=== PATIENT | female | born 1985 | race Caucasian/White ===

== ENCOUNTER 2018-01-03 11:39 | Emergency (ER) | payer OTHER ==
[2018-01-03] MEDS ORDERED: PROMETHAZINE 25 MG/ML VIAL ONE (13:01)
[2018-01-03] MEDS ORDERED: NA CHLORIDE 0.9% 1,000 ML ONE ×2 (13:01→14:52)
[2018-01-03 13:03] LABS: Absolute Lymphocytes (CBC) 1.6 K/uL (0.7-4.9); Absolute Monocytes 0.5 K/uL (0.1-1.3); Absolute Neutrophil 6.9 K/uL (1.8-8.0); Basophils % 0.4 % (0-1.3); Eosinophils % 0.4 % (0-4.4); Hematocrit 41.5 % (36.0-45.0); Lymphocytes % 17.2 % (15.3-44.8); MCH 32.4 pg (27.0-35.0); MCV 92.8 fL (80-100); MPV 8.3 fL (7.6-11.3); Monocytes % 5.2 % (3.3-12.3); RBC Red Blood Cell Count 4.47 M/uL (3.86-4.86)
[2018-01-03 13:14] LABS: Potassium 3.7 mmol/L (3.5-5.1)
[2018-01-03 16:17] LABS: Urine Blood NEGATIVE (NEG); Urine Glucose NEGATIVE (NEG); Urine Protein TRACE (NEG)
[2018-01-03 16:32] LABS: Urine Bacteria <20 /HPF (<20); Urine Culture Reflex Order NOT NEEDED; Urine Mucus 2+ /HPF (NONE SEEN); Urine RBC <5 /HPF (NONE SEEN)
--- NOTE | 2018-01-03 16:42 | ER ---
Nurse's Notes [facility] Name: Cassidy Salcedo Age: 32 yrs Sex: Female : 1985 Arrival Date: 01/03/2018 Time: 11:41 Bed 8 Private MD: Ave Chapa Diagnosis: Vomiting of , unspecified Presentation: 01/03 12:04 Presenting complaint: Patient states: Shes 10 weeks and she has been vomiting, aj1 unable to keep anything down for the past 3 days. Reports weakness and dizziness. She has been taking Zofran and diclegis, but she has been unable to keep them down. Transition of care: patient was not received from another setting of care. Onset of symptoms was December 31, 2017. Risk Assessment: Do you want to hurt yourself or someone else? Patient reports no desire to harm self or others. Initial Sepsis Screen: Does the patient meet any 2 criteria? No. Patient's initial sepsis screen is negative. Does the patient have a suspected source of infection? No. Patient's initial sepsis screen is negative. Care prior to arrival: None. 12:04 Method Of Arrival: Wheelchair aj1 12:04 Acuity: MARI 3 aj1 Triage Assessment: 12:09 General: Appears in no apparent distress. comfortable, Behavior is calm, cooperative, aj1 appropriate for age. Pain: Denies pain. Neuro: Level of Consciousness is awake, alert, obeys commands. Cardiovascular: Patient's skin is warm and dry. Respiratory: Airway is patent Respiratory effort is even, unlabored, Respiratory pattern is regular, symmetrical. GI: Reports vomiting. : Denies vaginal bleeding. 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 - Social history:: Smoking status: Patient/guardian denies using tobacco. - Ebola Screening: : Patient denies travel to an Ebola-affected area in the 21 days before illness onset. Screenin:45 Abuse screen: Denies threats or abuse. Denies injuries from another. Nutritional sv screening: No deficits noted. Tuberculosis screening: No symptoms or risk factors identified. Fall Risk None identified. Assessment: 12:45 General: Appears uncomfortable, well developed, Behavior is calm, cooperative, sv appropriate for age. Pain: Denies pain. Neuro: Level of Consciousness is awake, alert, obeys commands, Oriented to person, place, time, situation, Moves all extremities. Full function Gait is steady. Cardiovascular: Patient's skin is warm and dry. Respiratory: Respiratory effort is even, unlabored, Respiratory pattern is regular, symmetrical. GI: Abdomen is flat, Reports nausea, vomiting, dry heaving. Derm: Skin is pale. 13:32 Reassessment: Patient appears in no apparent distress at this time. Patient and/or sv family updated on plan of care and expected duration. Pain level reassessed. Patient is alert, oriented x 3, equal unlabored respirations, skin warm/dry/pink. Patient states feeling better. Patient states symptoms have improved. 14:54 Reassessment: Patient appears in no apparent distress at this time. Patient and/or sv family updated on plan of care and expected duration. Pain level reassessed. Patient is alert, oriented x 3, equal unlabored respirations, skin warm/dry/pink. Patient states feeling better. Patient states symptoms have improved. 15:40 Reassessment: Patient appears in no apparent distress at this time. Patient and/or sv family updated on plan of care and expected duration. Pain level reassessed. Patient is alert, oriented x 3, equal unlabored respirations, skin warm/dry/pink. Pt ambulatory to the bathroom with no difficulty noted. 16:59 Reassessment: Patient appears in no apparent distress at this time. Patient and/or sv family updated on plan of care and expected duration. Pain level reassessed. Patient is alert, oriented x 3, equal unlabored respirations, skin warm/dry/pink. Patient states feeling better. Patient states symptoms have improved. Vital Signs: 12:09 BP 127 / 88; Pulse 88; Resp 18; Temp 98.4(O); Pulse Ox 99% on R/A; Weight 86.18 kg (R); aj1 Height 5 ft. 6 in. (167.64 cm) (R); Pain 0/10; 13:31 BP 114 / 74; Pulse 78; Resp 18; Temp 98.8(O); Pulse Ox 100% on R/A; sv 14:30 BP 109 / 66; Pulse 61; Resp 16; Pulse Ox 100% on R/A; dh3 15:43 BP 105 / 70; Pulse 61; Resp 18; Pulse Ox 99% ; sv 17:00 BP 108 / 66; Pulse 62; Resp 16; Pulse Ox 99% ; sv 12:09 Body Mass Index 30.67 (86.18 kg, 167.64 cm) aj1 ED Course: 11:41 Patient arrived in ED. sb2 11:41 Ave Chapa MD is Private Physician. sb2 12:06 Triage completed. aj1 12:11 Arm band placed on Patient placed in waiting room. aj1 12:39 James Stone NP is PHCP. pm1 12:39 Marcel Dove MD is Attending Physician. pm1 12:39 Lucia Castano, JESSICA is Primary Nurse. sv 12:45 Patient has correct armband on for positive identification. Placed in gown. Bed in low sv position. Side rails up X 1. Adult w/ patient. Door closed. Warm blanket given. Head of bed elevated. 12:45 Initial lab(s) drawn, by me, sent to lab. Inserted saline lock: 20 gauge in right sv antecubital area, using aseptic technique. Blood collected. Flushed right antecubital with 5 ml normal saline. 13:23 IV is patent, is intact, with fluids infusing freely. sv 17:00 No provider procedures requiring assistance completed. IV discontinued, intact, sv bleeding controlled, No redness/swelling at site. Pressure dressing applied. Administered Medications: 13:00 Drug: Phenergan 12.5 mg Route: IVP; Site: right antecubital; sv 13:30 Follow up: Response: No adverse reaction; Marked relief of symptoms; Nausea is decreasedsv 13:00 Drug: NS 0.9% 1000 ml Route: IV; Rate: 1000 ml; Site: right antecubital; sv 14:00 Follow up: Response: No adverse reaction; IV Status: Completed infusion; IV Intake: sv 1000ml 14:54 Drug: NS 0.9% 1000 ml Route: IV; Rate: 1000 ml; Site: right antecubital; sg 15:56 Follow up: Response: No adverse reaction; IV Status: Completed infusion; IV Intake: sv 1000ml Intake: 14:00 IV: 1000ml; Total: 1000ml. sv 15:56 IV: 1000ml; Total: 2000ml. sv Outcome: 16:41 Discharge ordered by . pm1 17:00 Discharged to home ambulatory. sv 17:00 Condition: stable 17:00 Discharge instructions given to patient, Instructed on discharge instructions, follow up and referral plans. medication usage, Demonstrated understanding of instructions, follow-up care, medications, Prescriptions given X 2. 17:01 Patient left the ED. sv Signatures: Pavithra Hermna RN RN aj1 Lucia Castano RN RN sv Kailash Choi RN RN sg James Stone, KALYAN PITCHING COACH pm1 Maryam Coleman 3 Uma Albright sb2
--- NOTE | 2018-01-03 16:42 | EDPHYS ---
Physician Documentation [facility] Name: Cassidy Salcedo Age: 32 yrs Sex: Female : 1985 Arrival Date: 01/03/2018 Time: 11:41 Bed 8 Private MD: Ave Chapa ED Physician Marcel Dove HPI: 01/03 13:20 This 32 yrs old Female presents to ER via Wheelchair with complaints of pm1 Vomiting - 10 WK PG. 13:20 The patient presents to the emergency department with nausea, vomiting. Onset: The pm1 symptoms/episode began/occurred 2 day(s) ago. Possible causes: . The symptoms are aggravated by food , water The symptoms are alleviated by nothing. Patient has been taking Zofran and diclegis at home without improvement in symptoms. Associated signs and symptoms: Pertinent positives: nausea, vomiting, Pertinent negatives: abdominal pain, diarrhea, dysuria, fever. Severity of symptoms: in the emergency department the symptoms are worse. The patient has experienced similar episodes in the past, and the symptoms today are exactly the same, Patient with nausea and vomiting with each of her prior pregnancies. A1. The patient has been recently seen by a physician: Dr. Hung, 2 weeks ago for similar complaints and given a prescription for declegis and zofran. Patient also had a urinary tract infection and was instructed to take OTC clotrimazole. Patient with ultrasound at 8 weeks that shows IUP. Patient was also weaned off of her Zoloft. Patient requesting Phenergan since it worked well for her prior related vomiting.. 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 - Social history:: Smoking status: Patient/guardian denies using tobacco. - Ebola Screening: : Patient denies travel to an Ebola-affected area in the 21 days before illness onset. ROS: 13:20 Constitutional: Negative for fever, chills, and weight loss, Eyes: Negative for injury, pm1 pain, redness, and discharge, ENT: Negative for injury, pain, and discharge, Neck: Negative for injury, pain, and swelling, Cardiovascular: Negative for chest pain, palpitations, and edema, Respiratory: Negative for shortness of breath, cough, wheezing, and pleuritic chest pain. 13:20 Back: Negative for injury and pain, : Negative for injury, bleeding, discharge, and swelling, MS/Extremity: Negative for injury and deformity, Skin: Negative for injury, rash, and discoloration, Neuro: Negative for headache, weakness, numbness, tingling, and seizure. 13:20 Abdomen/GI: Positive for nausea and vomiting, Negative for abdominal pain, diarrhea. Exam: 13:20 Constitutional: This is a well developed, well nourished patient who is awake, alert, pm1 and in no acute distress. Head/Face: Normocephalic, atraumatic. Eyes: Pupils equal round and reactive to light, extra-ocular motions intact. Lids and lashes normal. Conjunctiva and sclera are non-icteric and not injected. Cornea within normal limits. Periorbital areas with no swelling, redness, or edema. ENT: Nares patent. No nasal discharge, no septal abnormalities noted. Tympanic membranes are normal and external auditory canals are clear. Oropharynx with no redness, swelling, or masses, exudates, or evidence of obstruction, uvula midline. Mucous membranes moist. Neck: Trachea midline, no thyromegaly or masses palpated, and no cervical lymphadenopathy. Supple, full range of motion without nuchal rigidity, or vertebral point tenderness. No Meningismus. Chest/axilla: Normal chest wall appearance and motion. Nontender with no deformity. No lesions are appreciated. Cardiovascular: Regular rate and rhythm with a normal S1 and S2. No gallops, murmurs, or rubs. No pulse deficits. Respiratory: Lungs have equal breath sounds bilaterally, clear to auscultation and percussion. No rales, rhonchi or wheezes noted. No increased work of breathing, no retractions or nasal flaring. Abdomen/GI: Soft, non-tender, with normal bowel sounds. No distension or tympany. No guarding or rebound. No evidence of tenderness throughout. Back: No spinal tenderness. No costovertebral tenderness. Full range of motion. Skin: Warm, dry with normal turgor. Normal color with no rashes, no lesions, and no evidence of cellulitis. MS/ Extremity: Pulses equal, no cyanosis. Neurovascular intact. Full, normal range of motion. 13:20 Neuro: Orientation: is normal, Motor: is normal, moves all fours. Vital Signs: 12:09 BP 127 / 88; Pulse 88; Resp 18; Temp 98.4(O); Pulse Ox 99% on R/A; Weight 86.18 kg (R); aj1 Height 5 ft. 6 in. (167.64 cm) (R); Pain 0/10; 13:31 BP 114 / 74; Pulse 78; Resp 18; Temp 98.8(O); Pulse Ox 100% on R/A; sv 14:30 BP 109 / 66; Pulse 61; Resp 16; Pulse Ox 100% on R/A; dh3 15:43 BP 105 / 70; Pulse 61; Resp 18; Pulse Ox 99% ; sv 17:00 BP 108 / 66; Pulse 62; Resp 16; Pulse Ox 99% ; sv 12:09 Body Mass Index 30.67 (86.18 kg, 167.64 cm) aj1 MDM: 12:41 Patient medically screened. pm1 15:52 Data reviewed: vital signs. Data interpreted: Pulse oximetry: on room air is 99 %. pm1 Interpretation: normal. 16:00 ED course: US-Transvaginal OB performed on 12/22/2017 reviewed: Single 8 W 0 D pm1 intrauterine gestation. Patient without any abdominal pain, pelvic pain, back pain, vaginal bleeding or discharge. 16:35 Counseling: I had a detailed discussion with the patient and/or guardian regarding: the pm1 historical points, exam findings, and any diagnostic results supporting the discharge/admit diagnosis, lab results, the need for outpatient follow up, to return to the emergency department if symptoms worsen or persist or if there are any questions or concerns that arise at home. 01/03 12:45 Order name: CBC with Diff; Complete Time: 13:20 sv 01/03 12:45 Order name: Basic Metabolic Panel; Complete Time: 13:20 sv 01/03 12:52 Order name: Quantitative Hcg; Complete Time: 15:26 pm1 01/03 12:52 Order name: Abo/rh Typing; Complete Time: 14:07 pm1 01/03 12:52 Order name: Urine Microscopic Only; Complete Time: 16:35 pm1 01/03 16:06 Order name: Urine Dipstick--Ancillary (enter results); Complete Time: 16:35 eb 01/03 12:45 Order name: IV Saline Lock; Complete Time: 12:45 sv 01/03 12:45 Order name: Labs collected and sent; Complete Time: 13:03 sv 01/03 12:52 Order name: NPO; Complete Time: 13:03 pm1 01/03 12:52 Order name: Urine Dipstick-Ancillary (obtain specimen); Complete Time: 16:13 pm1 01/03 16:06 Order name: Urine --Ancillary (enter results); Complete Time: 16:35 eb Administered Medications: 13:00 Drug: Phenergan 12.5 mg Route: IVP; Site: right antecubital; sv 13:30 Follow up: Response: No adverse reaction; Marked relief of symptoms; Nausea is decreasedsv 13:00 Drug: NS 0.9% 1000 ml Route: IV; Rate: 1000 ml; Site: right antecubital; sv 14:00 Follow up: Response: No adverse reaction; IV Status: Completed infusion; IV Intake: sv 1000ml 14:54 Drug: NS 0.9% 1000 ml Route: IV; Rate: 1000 ml; Site: right antecubital; sg 15:56 Follow up: Response: No adverse reaction; IV Status: Completed infusion; IV Intake: sv 1000ml Disposition: 17:54 Co-signature as Attending Physician, Marcel Dove MD. rn Disposition: 01/03/18 16:41 Discharged to Home. Impression: Vomiting of , unspecified. - Condition is Stable. - Discharge Instructions: Morning Sickness. - Prescriptions for Phenergan 25 mg Rectal Suppository - insert 1 suppository by RECTAL route every 6 hours As needed; 12 suppository. promethazine 25 mg Oral Tablet - take 1 tablet by ORAL route every 6 hours As needed; 20 tablet. - Medication Reconciliation Form, Thank You Letter, Antibiotic Education, Prescription Opioid Use form. - Follow up: Emergency Department; When: As needed; Reason: Worsening of condition. Follow up: Private Physician; When: 2 - 3 days; Reason: Recheck today's complaints, Continuance of care, Re-evaluation by your physician. - Problem is new. - Symptoms have improved. Signatures: Dispatcher [employer] EDMS Pavithra Herman RN RN aj1 Lucia Castano RN Kailash Hill RN RN sg Nieto, Roman, MD MD rn Marinas, Patrick, LAY UP OPERATOR LAY UP OPERATOR pm1 Corrections: (The following items were deleted from the chart) 17:01 16:41 01/03/2018 16:41 Discharged to Home. Impression: Vomiting of , sv unspecified. Condition is Stable. Forms are Medication Reconciliation Form, Thank You Letter, Antibiotic Education, Prescription Opioid Use. Follow up: Emergency Department; When: As needed; Reason: Worsening of condition. Follow up: Private Physician; When: 2 - 3 days; Reason: Recheck today's complaints, Continuance of care, Re-evaluation by your physician. Problem is new. Symptoms have improved. pm1
[2018-01-03 17:50] VITALS: TEMP 98.8
[2018-01-03 17:53] VITALS: O2SAT 99
[2018-01-03 17:54] VITALS: BP 108/66
== END 2018-01-03 17:01 | disposition home or self-care (01) ==
LOC: ER 11:39
DX: O21.9 Vomiting of pregnancy, unspecified (principal); Z3A.10 10 weeks gestation of pregnancy; Z88.0 Allergy status to penicillin; Z88.2 Allergy status to sulfonamides; Z88.8 Allergy status to other drugs, medicaments and biological substances
CPT/HCPCS: 36415; 80048; 81003; 81015; 81025; 84702; 85025; 86900; 86901; 96361; 96374; 99284; J2550; J7030

== ENCOUNTER 2018-07-30 06:38 | Inpatient (IN) | payer OTHER ==
[2018-07-30] MEDS ORDERED: Ringers Lactate 1,000 ML IV PRN (06:48)
[2018-07-30] MEDS ORDERED: Ringers Lactate 1,000 ML IV SCH (07:00)
[2018-07-30] MEDS ORDERED: OXYTOCIN/LR 20 UNIT/1,000 ML BAG IV SCH ×2 (07:00→15:00)
[2018-07-30] MEDS ORDERED: FENTANYL CITR 100 MCG/2 ML IV ONE (07:02)
[2018-07-30] MEDS ORDERED: FENTANYL/BUPIVACAINE/NS/PF 200 MCG/100 ML BAG EP PRN (07:02)
[2018-07-30] MEDS ORDERED: ROPIVACAINE HCL 100 ML IV PRN (07:34)
--- NOTE | 2018-07-30 07:45 | P.PN ---
Date of Service: 07/30/18 No changes from Thursday, cx 4cm, vtx, [address] epidural, arom, start pit.
[2018-07-30 07:57] LABS: RPR Titer ND
[2018-07-30] MEDS ORDERED: ROPIVACAINE HCL 0.2% 20ML AMP IV ONE (08:00)
[2018-07-30 08:01] LABS: Urine Appearance CLEAR; Urine Bilirubin NEGATIVE (NEG); Urine Blood NEGATIVE (NEG); Urine Color YELLOW; Urine Glucose NEGATIVE (NEG); Urine Protein NEGATIVE (NEG); Urine Urobilinogen 0.2 mg/dL (0.2-1.0); Urine pH 6.5 (5.0-7.0)
[2018-07-30 08:02] LABS: Absolute Lymphocytes (CBC) 1.7 K/uL (0.7-4.9); Absolute Monocytes 0.4 K/uL (0.1-1.3); Absolute Neutrophil 8.3 K/uL (1.8-8.0); Basophils % 0.8 % (0-1.3); Eosinophils % 0.9 % (0-4.4); Hematocrit 35.3 % (36.0-45.0); MPV 8.7 fL (7.6-11.3); Monocytes % 3.9 % (3.3-12.3); RBC Red Blood Cell Count 3.81 M/uL (3.86-4.86)
[2018-07-30] MEDS ORDERED: ROPIVACAINE HCL 100 ML IV ONE (08:06)
[2018-07-30] MEDS ORDERED: ROPIVACAINE HCL 0 ML ONE (08:06)
[2018-07-30 08:13] LABS: Urine Bacteria 20-50 /HPF (<20); Urine Culture Reflex Order REFLEXED; Urine Mucus 1+ /HPF (NONE SEEN); Urine RBC <5 /HPF (NONE SEEN)
[2018-07-30] MEDS ORDERED: DIPHENHYDRAMINE 50 MG/ML VIAL ONE (09:45)
[2018-07-30] MEDS ORDERED: EPINEPHRINE/PF 1 MG/ML AMP ONE (10:09)
[2018-07-30] MEDS ORDERED: LIDOCAINE 2% MPF 5 ML VIAL ONE (10:09)
[2018-07-30 11:31] VITALS: BMI 36.3
[2018-07-30] MEDS ORDERED: LIDOCAINE 1% MPF 30 ML VIAL ONE (13:27)
[2018-07-30] MEDS ORDERED: CARBOPROST TROME 250 MCG/ML IM ONE (13:27)
[2018-07-30] MEDS ORDERED: METHYLERGONOVINE 0.2MG/ML AMP IM ONE (13:28)
[2018-07-30] MEDS ORDERED: METHYLERGONOVINE 0.2MG/ML AMP IM PRN (14:10)
[2018-07-30] MEDS ORDERED: CARBOPROST TROME 250 MCG/ML IM PRN (14:10)
[2018-07-30] MEDS ORDERED: METHYLERGONOVINE 0.2 MG TAB PO PRN (14:10)
--- NOTE | 2018-07-30 14:14 | P.BOP ---
Preoperative diagnosis: 39+ week Postoperative diagnosis: same, delivered Primary procedure: SCVD viable female , OP Secondary procedure: repair first degree periurethral laceration Estimated blood loss: 10ml at delivery Complications: None Transferred to: Other (274) Condition: Good
[2018-07-30] MEDS: IBUPROFEN 200 MG TAB PO PRN ×2 (15:53→22:56)
[2018-07-30 21:01] LABS: RPR (Rapid Plasma Reagin) NON-REACT (NON-REACT)
[2018-07-30] MEDS: ACETAMINOPHEN 500 MG TAB PO PRN (23:52)
[2018-07-31] MEDS: IBUPROFEN 200 MG TAB PO PRN ×2 (05:13→11:23)
[2018-07-31] MEDS ORDERED: Ringers Lactate 1,000 ML IV ONE (07:09)
[2018-07-31] MEDS: ACETAMINOPHEN 500 MG TAB PO PRN (08:44)
--- NOTE | 2018-07-31 10:29 | OP ---
Surgeon: Joey Hung MD Ms. Salcedo is a 33-year-old, , female, 3, para 2-0-0-2 at term, admitted fo r elective induction of labor, and noted to be 4 cm on cervical dilatation, vertex presentation. Aft er placement of epidural catheter, rupture of membranes performed, and Pitocin induction of labor was begun. She had a first stage of labor of 2 hours and 50 minutes. Second stage of labor of 34 minut es. She delivered by spontaneous controlled vaginal delivery a 7 pounds 11 ounces female . In tiara delivered occiput posterior. After delayed cord clamping, the infant was placed on mother's abd omen. Cord blood was obtained. Placenta was spontaneously expelled, and appeared to be intact. Int rauterine exam revealed no retained placental fragments. Estimated total blood loss at the time of d elivery was less than 10 mL. The patient suffered first degree periurethral laceration repaired with 2 simple sutures of 3-0 Vicryl. FABIOLA/MOODY Voice ID: [id number] Report ID: [id number]
[2018-07-31 15:40] VITALS: BP 123/62; TEMP 98.8
--- NOTE | 2018-08-02 09:42 | DS ---
Date of Discharge: 07/31/2018 Ms. Salcedo is a 33-year-old, female, admitted for elective induction of labor. Sh dominguez had an uneventful labor and delivery of a 7-pound 11-ounce female infant, 9 and 9. She was d ismissed on the first day, ambulatory, on a select diet with routine post vaginal delivery activity restrictions. To be seen back in my office in 1 week and 6 weeks for care. Lab consisted of an admission hemoglobin and hematocrit of 12.0 and 35.3, dismissal 32.9. Urine cult ure is pending. Serology is nonreactive. She is blood type Rh positive. She was dismissed to deborah nue taking her iron and vitamins. May use ibuprofen or Tylenol for discomfort with the usua l post vaginal delivery activity restrictions. FABIOLA/MOODY Voice ID: [id number] Report ID: [id number]
[2018-08-05 04:21] LABS: HBsAG Nonreactive (Nonreactive)
== END 2018-07-31 17:00 | disposition home or self-care (01) | DRG 807 ==
LOC: 2ND-WC 06:38
PROVIDERS: ADMIT Specialist; ATTEND Specialist
PROC: 10E0XZZ Delivery of Products of Conception, External Approach (ICD-10-PCS; principal; 2018-07-30)
PROC: 10907ZC Drainage of Amniotic Fluid, Therapeutic from Products of Conception, Via Natural or Artificial Opening (ICD-10-PCS; 2018-07-30)
PROC: 3E033VJ Introduction of Other Hormone into Peripheral Vein, Percutaneous Approach (ICD-10-PCS; 2018-07-30)
PROC: 0HQ9XZZ Repair Perineum Skin, External Approach (ICD-10-PCS; 2018-07-30)
DX: O71.82 Other specified trauma to perineum and vulva (principal); Z37.0 Single live birth; Z3A.39 39 weeks gestation of pregnancy
CPT/HCPCS: 36415; 81001; 85014; 85025; 86592; 86901; 87086; 87088; 87340; J0171; J2210; J2590; J2795; J3010

== ENCOUNTER 2020-07-11 21:00 | Emergency (ER) | payer OTHER ==
--- NOTE | 2020-07-11 23:34 | ER ---
Nurse's Notes [facility] Name: Cassidy Salcedo Age: 35 yrs Sex: Female : 1985 Arrival Date: 07/11/2020 Time: 21:01 Bed 25 Private MD: Diagnosis: Migraine Presentation: 07/11 21:08 Chief complaint: Patient states: Migraines worse than usual for at least 1 month. Had R ll1 sided head pressure today with sensitivity to bright lights. Vision blurred/hazy, dizziness noticed today. Right side of body felt heavy. Then started to breathe hard, N/V, shaking/crying. Chest pressure and both fingers feel tingling. Coronavirus screen: Client denies travel out of the [place] in the last 14 days. At this time, the client does not indicate any symptoms associated with coronavirus-19. Ebola Screen: Patient denies travel to an Ebola-affected area in the 21 days before illness onset. Initial Sepsis Screen: Does the patient meet any 2 criteria? No. Patient's initial sepsis screen is negative. Does the patient have a suspected source of infection? No. Patient's initial sepsis screen is negative. Risk Assessment: Do you want to hurt yourself or someone else? Patient reports no desire to harm self or others. Onset of symptoms was July 11, 2020. 21:08 Method Of Arrival: Ambulatory ll1 21:08 Acuity: MARI 3 ll1 Triage Assessment: 23:30 General: Appears in no apparent distress. Behavior is calm, cooperative. 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 - Social history:: Smoking status: Patient denies any tobacco usage or history of. - Family history:: not pertinent. - Hospitalizations: : No recent hospitalization is reported. Screenin:52 Abuse screen: Denies threats or abuse. Denies injuries from another. Nutritional iw screening: No deficits noted. Tuberculosis screening: No symptoms or risk factors identified. Fall Risk None identified. Assessment: 23:30 General: Appears in no apparent distress. comfortable, Behavior is calm, cooperative. iw Pain: Denies pain. Neuro: Level of Consciousness is awake, alert, obeys commands, Oriented to person, place, time, situation, Moves all extremities. Full function. Cardiovascular: Patient's skin is warm and dry. Respiratory: Respiratory effort is even, unlabored, Respiratory pattern is regular, symmetrical. Derm: Skin is intact, is healthy with good turgor. Musculoskeletal: Range of motion: intact in all extremities. Vital Signs: 21:08 BP 133 / 84; Pulse 82; Resp 17; Temp 98.3; Pulse Ox 100% ; Pain 5/10; ll1 Stas Coma Score: 23:32 Eye Response: spontaneous(4). Verbal Response: oriented(5). Motor Response: obeys rn commands(6). Total: 15. ED Course: 21:01 Patient arrived in ED. cl3 21:18 Triage completed. ll1 21:19 Arm band placed on. EKG completed in triage. Results shown to MD. ll1 21:41 CT Head Brain wo Cont In Process Unspecified. EDMS 22:32 Marcel Dove MD is Attending Physician. rn 22:33 Jia Ivey RN is Primary Nurse. iw 23:23 Inserted saline lock: 20 gauge in left antecubital area, using aseptic technique. iw 23:30 Patient has correct armband on for positive identification. iw 23:33 Chad Owens MD is Referral Physician. rn 23:50 No provider procedures requiring assistance completed. IV discontinued, intact, iw bleeding controlled, No redness/swelling at site. Pressure dressing applied. Administered Medications: 23:53 Not Given (Patient Refused): NS 0.9% 1000 ml IV at 1 bolus Per protocol; 1000 mL bolus iw 23:53 Not Given (Patient Refused): Decadron - Dexamethasone 10 mg IVP once iw 23:54 Not Given (Patient Refused): Demerol 25 mg IVP once; RASS on ADMIN: Combtv4, Very iw Agttd3, Agttd2, Rstlss1, AlertClm0, Drwsy-1, Lt Sdtn-2, Mod Sdtn-3, Dp Sdtn-4, UnArsble-5 Outcome: 23:33 Discharge ordered by MD. rn 23:52 Discharged to home ambulatory, with family. iw 23:52 Condition: good 23:52 Discharge instructions given to patient, Instructed on discharge instructions, follow up and referral plans. Demonstrated understanding of instructions, follow-up care. 23:53 Patient left the ED. iw Signatures: Dispatcher [employer] Jia Montenegro, RN JESSICA iw Marcel Dove MD MD rn Lewis, Charde cl3 Gregoria John RN RN ll1
--- NOTE | 2020-07-11 23:34 | EDPHYS ---
Physician Documentation [facility] Name: Cassidy Salcedo Age: 35 yrs Sex: Female : 1985 Arrival Date: 07/11/2020 Time: 21:01 Bed 25 Private MD: ED Physician Marcel Dove HPI: 07/11 23:07 This 35 yrs old Female presents to ER via Ambulatory with complaints of rn Numbness Of Arm, Numbess In Fingers. 23:07 The patient complains of pain to the right side of face. The patient describes the rn headache as aching, a pressure. 23:07 Onset: The symptoms/episode began/occurred at an unknown time. Associated signs and rn symptoms: Pertinent positives: paresthesias, blurred vision, Pertinent negatives: altered mental status, fever, neck stiffness, rash, vision loss. Severity of symptoms: At its worst the pain was moderate, in the emergency department the pain has improved. Headache History: The patient has had previous headaches and this one is similar to previous episodes. The patient has experienced similar episodes in the past. Reports hx of migraines "for years", multiple ER visits and MRI brain, eventually called migraines, went a while without them but returned in last month, no head injury or trauma, reports right sided facial/head pressure, and earlier felt a few minutes of right sided leg/arm heaviness. Currently with mild head pressure. . 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 - Social history:: Smoking status: Patient denies any tobacco usage or history of. - Family history:: not pertinent. - Hospitalizations: : No recent hospitalization is reported. ROS: 23:07 Constitutional: Negative for fever, chills, and weight loss, Eyes: Negative for injury, rn pain, redness, and discharge, Neck: Negative for injury, pain, and swelling, Cardiovascular: Negative for chest pain, palpitations, and edema, Respiratory: Negative for shortness of breath, cough, wheezing, and pleuritic chest pain, Abdomen/GI: Negative for abdominal pain, nausea, vomiting, diarrhea, and constipation, MS/Extremity: Negative for injury and deformity, Skin: Negative for injury, rash, and discoloration, Neuro: Negative for seizure Exam: 23:07 Constitutional: This is a well developed, well nourished patient who is awake, alert, rn and in no acute distress. Head/Face: Normocephalic, atraumatic. Eyes: Pupils equal round and reactive to light, extra-ocular motions intact. Lids and lashes normal. Conjunctiva and sclera are non-icteric and not injected. Cornea within normal limits. Periorbital areas with no swelling, redness, or edema. Cardiovascular: Regular rate and rhythm. No pulse deficits. Respiratory: No increased work of breathing, no retractions or nasal flaring. Skin: Warm, dry with normal turgor. Normal color with no rashes, no lesions, and no evidence of cellulitis. MS/ Extremity: Pulses equal, no cyanosis. Neurovascular intact. Full, normal range of motion. Equal circumference. Neuro: Awake and alert, GCS 15, oriented to person, place, time, and situation. Cranial nerves II-XII grossly intact. Motor strength 5/5 in all extremities. Sensory grossly intact. Cerebellar exam normal. Vital Signs: 21:08 BP 133 / 84; Pulse 82; Resp 17; Temp 98.3; Pulse Ox 100% ; Pain 5/10; ll1 Stas Coma Score: 23:32 Eye Response: spontaneous(4). Verbal Response: oriented(5). Motor Response: obeys rn commands(6). Total: 15. MDM: 22:32 Patient medically screened. rn 23:32 Differential diagnosis: migraine. Data reviewed: vital signs, nurses notes, EKG, rn radiologic studies, CT scan, and as a result, I will discharge patient. Counseling: I had a detailed discussion with the patient and/or guardian regarding: the historical points, exam findings, and any diagnostic results supporting the discharge/admit diagnosis, radiology results, the need for outpatient follow up, to return to the emergency department if symptoms worsen or persist or if there are any questions or concerns that arise at home. Response to treatment: the patient's symptoms have markedly improved after treatment, and as a result, I will discharge patient. Special discussion: I discussed with the patient/guardian in detail that at this point there is no indication for admission to the hospital. It is understood, however, that if the symptoms persist or worsen the patient needs to return immediately for re-evaluation. Further emergent ED testing is not indicated at this point in time. I discussed with the patient/guardian in detail the need to arrange with the PCP or specialist further outpatient testing, MRI, Based on the history and exam findings, there is no indication for further emergent testing or inpatient evaluation. I discussed with the patient/guardian the need to see the neurologist for further evaluation of the symptoms. ED course: Pt feels much better prior to treatment, ct head neg, urged to get outpt MRI with contrast and neuro f/u, patient would like to go home without further treatment.. 07/11 21:22 Order name: CT Head Brain wo Cont rn 07/11 22:54 Order name: IV Start; Complete Time: 23:25 rn Administered Medications: 23:53 Not Given (Patient Refused): NS 0.9% 1000 ml IV at 1 bolus Per protocol; 1000 mL bolus iw 23:53 Not Given (Patient Refused): Decadron - Dexamethasone 10 mg IVP once iw 23:54 Not Given (Patient Refused): Demerol 25 mg IVP once; RASS on ADMIN: Combtv4, Very iw Agttd3, Agttd2, Rstlss1, AlertClm0, Drwsy-1, Lt Sdtn-2, Mod Sdtn-3, Dp Sdtn-4, UnArsble-5 Disposition: 07/11/20 23:33 Discharged to Home. Impression: Migraine. - Condition is Stable. - Discharge Instructions: Migraine Headache. - Work release form, Medication Reconciliation Form, Thank You Letter, Antibiotic Education, Prescription Opioid Use form. - Follow up: Chad Owens MD; When: As needed; Reason: Recheck today's complaints, Re-evaluation by your physician. - Problem is an ongoing problem. - Symptoms have improved. Signatures: Dispatcher [employer] EDMS Jia Ivey RN RN iw Marcel Dove MD MD rn Lewis, Lynsay, RN RN ll1 Corrections: (The following items were deleted from the chart) 23:53 23:33 07/11/2020 23:33 Discharged to Home. Impression: Migraine. Condition is Stable. iw Forms are Medication Reconciliation Form, Thank You Letter, Antibiotic Education, Prescription Opioid Use. Follow up: Chad Owens; When: As needed; Reason: Recheck today's complaints, Re-evaluation by your physician. Problem is an ongoing problem. Symptoms have improved. rn
[2020-07-11] MEDS ORDERED: dexAMETHasone 10 MG/ML VIAL ONE (23:43)
[2020-07-11] MEDS ORDERED: MEPERIDINE HCL 25 MG/ML SYR ONE (23:44)
[2020-07-11] MEDS ORDERED: NA CHLORIDE 0.9% 0 ML ONE (23:44)
[2020-07-11 23:58] VITALS: BP 133/84; TEMP 98.3; O2SAT 100
--- NOTE | 2020-07-12 09:59 | RAD REPORT ---
EXAM DESCRIPTION: CT - Head Brain Wo Cont - 07/12/2020 7:16 am CLINICAL HISTORY: Paresthesias;Headache COMPARISON: None Available. TECHNIQUE: Contiguous axial images of the brain were obtained without the administration of intraven ous contrast. Coronal and sagittal reformats obtained and reviewed. This exam was performed accordi ng to our departmental dose-optimization program which includes use of Automated Exposure Control, ad justment of the mA and/or kV according to patient size and/or use of iterative reconstruction techniq ue. Findings: Brain: No hemorrhage. No territorial infarct. No mass effect. No herniation. Ventricles: Within normal limits for patient's age. Bones: No acute osseous abnormality. Paranasal sinuses: Unremarkable. Mastoid air cells: Unremarkable. Soft tissues: No acute abnormality. IMPRESSION: No acute intracranial abnormalities. Electronically signed by: Darek Wheeler MD 07/11/2020 9:51 PM PLASTICS ENGINEER Due to temporary technical issues with the PACS/Fluency reporting system, reports are being signed by the in house radiologist without review as a courtesy to ensure prompt reporting. The interpreting r adiologist is fully responsible for the content of the report.
== END 2020-07-11 23:53 | disposition home or self-care (01) ==
LOC: ER 21:00
DX: G43.909 Migraine, unspecified, not intractable, without status migrainosus (principal); Z88.0 Allergy status to penicillin; Z88.2 Allergy status to sulfonamides; Z88.8 Allergy status to other drugs, medicaments and biological substances
CPT/HCPCS: 70450; 93005; 99283; J1100; J2175; J7030

== ENCOUNTER 2022-09-23 15:27 | Emergency (ER) | payer OTHER ==
--- OUTSIDE RECORDS SUMMARY | 2022-09-23 15:39 | XMS REPORT | Continuity of Care Document ---
:1985 Author Organization [facility] t Address [address] [place] [address] Care Team Providers Name Role Phone Asked, No Pcp Primary Care Physician Unavailable Ashley GARCIA, Shilpa Torres Attending Clinician [phone] Payers Payer Name Policy Type Policy Number Effective Date Expiration Date S ource Problems Condition Condition Condition Status Onset Resolution Last Treating Co mments Source Name Details Category Date Date Treatment Clinician Date Migraine Migraine Disease Active Metho di with aura with aura 5-12 st and and 00:00: Hospita without without 00 l status status migrainosu migrainosu s, not s, not intractabl intractabl e e Allergies, Adverse Reactions, Alerts Allergy Allergy Status Severity Reaction(s) Onset Inactive Treating Comm ents Source Name Type Date Date Clinician Penicill Propensi Active Rash Method i ins ty to 3-22 st adverse 00:00: Hospita reaction 00 l s to drug Metoclop Propensi Active Other (See Panic Me thodi ramide ty to Comments) 3-[address] Hcl adverse 00:00: Hospita reaction 00 l s to drug Sulfadim Propensi Active Rash Method i ethoxine ty to 3-22 st adverse 00:00: Hospita reaction 00 l s to drug Social History Social Habit Start Date Stop Date Quantity Comments Source [facility] Alcohol intake 2022-02-06 2022-02-06 Ex-drinker [facility] 00:00:00 00:00:00 (finding) Hospital History of Social 2022-02-06 2022-02-[address] function 00:00:00 00:00:00 Hospital Tobacco use and 2020-08-13 2020-08-13 Smokeless [facility] exposure 00:00:00 00:00:00 tobacco non-user Hospital Sex Assigned At [birth year] [facility]00 [facility] Smoking Status Start Date Stop Date Source Never smoked tobacco [facility] Medications Ordered Filled Start Stop Current Ordering Indication Dosage Frequency Signature Comments Components Source Medication Medication Date Date Medication? Clinician (SIG) Name Name diclofenac 2021-05 No 50mg Take 50 mg [facility] potassium 06-[address] ([place]) 50 00:00: 05:59 as needed Hospita mg powder 00 :00 (migraine) l in packet . methylPREDN 2021-05 No follow Met [facility] ISolone 06-[address] (Medrol, 00:00: 05:59 directions Ho alicia Florez,) 4 mg 00 :00 l tablet diclofenac 2021-05 No 50mg Take 50 mg [facility] potassium 05-[address] ([place]) 50 00:00: 00:00 as needed [facility]ospita mg powder 00 :00 (migraine) l in packet . buPROPion 2021-05 Yes TAKE 1 Method i XL 0-[address] (WELLBUTRIN 00:00: MOUTH Hospi ta XL) 150 MG 00 EVERY DAY l 24 hr tablet aspirin-tamika 2021- No 1{tbl} Q6H Take 1 M [facility] taminophen- 02-[address] caffeine 14:22: 00:00 mouth Hospita (EXCEDRIN 13 :00 every 6 l MIGRAINE) (six) 250-250-65 hours as mg per needed for tablet headaches. sertraline 2021- No 50mg QD Take 50 mg [facility] (ZOLOFT) 25 02-[address] MG tablet 14:22: 00:00 daily. Hospi ta 08 :00 l diclofenac 2021- No 50mg Take 50 mg [facility] potassium 02-[address] ([place]) 50 00:00: 00:00 as needed Hospita mg powder 00 :00 (migraine) l in packet . buPROPion 2021- No 150mg QD Take 1 Meth desi XL 9-15 10-[address] (Wellbutrin 00:00: 00:00 (150 mg Ho spita XL) 150 MG 00 :00 total) by l 24 hr mouth tablet daily. fremanezuma 2022- No 225mg Q28D Inject 225 [facility] b-vfrm 6- 06-[address] ([place] 00:00: 04:59 the skin Hospit a Autoinjecto 00 :00 every 28 l r) 225 days. mg/1.5 mL auto-inject or fremanezuma 2020-05- No 225mg Q28D Inject 225 [facility] b-vfrm 2-20 06-[address] ([place] 00:00: 00:00 the skin Hospit a Autoinjecto 00 :00 every 28 l r) 225 days. mg/1.5 mL auto-inject or propranolol 2021- No 60mg QD Take 1 Met [facility]odi LA (INDERAL 11-20-[address] LA) 60 MG 00:00: 04:59 (60 mg Hospi ta 24 hr 00 :00 total) by l capsule mouth daily. diclofenac 2021- No 50mg Take 50 mg [facility] potassium 11-[address] ([place]) 50 00:00: 04:59 as needed Hospita mg powder 00 :00 (migraine) l in packet . fluticasone 2021- No 100ug 2 sprays [facility] propionate 08-[address] (FLONASE) 00:00: 00:00 nostril. Hos edinson 50 00 :00 l mcg/actuati on nasal spray Vital Signs Vital Name Observation Time Observation Value Comments Source Systolic blood 2022-02-06 18:57:00 130 mm[Hg] [facility] pressure Diastolic blood 2022-02-06 18:57:00 84 mm[Hg] [facility] pressure Heart rate 2022-02-06 18:57:00 101 /min [facility] Body height 2022-02-06 18:57:00 167.6 cm [facility] Body weight 2022-02-06 18:57:00 83.008 kg [facility] BMI 2022-02-06 18:57:00 29.54 kg/m2 [facility] Procedures This patient has no known procedures. Plan of Care Planned Activity Planned Date Details Comments Source Future Scheduled 2022-09-23 COVID-19 VACCINE [facility] Test 14:31:25 (#1) [code = COVID-19 VACCINE (#1)] Future Scheduled 2022-09-23 Hepatitis C [facility] Test 14:31:25 screening (procedure) [code = 494334875] Future Scheduled 2022-09-23 Screening for [facility] Test 14:31:25 malignant neoplasm of cervix (procedure) [code = 213571749] Future Scheduled 2022-09-23 INFLUENZA VACCINE [facility] Test 14:31:25 [code = INFLUENZA VACCINE] Encounters Start End Encounter Admission Attending Care Care Encounter Source Date/Time Date/Time Type Type Clinicians Facility Department ID 2022-09-23 2022-09-23 Telephone Ashley, 1.2.840.1 [id number] [facility] 00:00:00 00:00:[address] [place] 3.430.2.7 Hospi ta .3.297069 l .8 2022-07-09 2022-07-09 Elva Ramirez, 1.2.840.1 [id number] [facility] 00:00:00 00:00:[address] [place] 3.430.2.7 Hospi ta .3.383819 l .8 2022-04-02 2022-04-02 Orders Ashley 1.2.840.1 [id number] [facility] 00:00:00 00:00:00 Only Shilpa 10889.1.[address] [place] 3.430.2.7 Hospi ta .3.162428 l .8 2022-04-02 2022-04-02 Elva Ramirez 1.2.840.1 [id number] [facility] 00:00:00 00:00:[address] [place] 3.430.2.7 Hospi ta .3.204423 l .8 2022-03-31 2022-03-31 Refill Ashley, 1.2.840.1 [id number] [facility] 00:00:00 00:00:[address] [place] 3.430.2.7 Hospi ta .3.223051 l .8 2022-03-06 2022-03-06 Refill Ashley, 1.2.840.1 [id number] [facility] 00:00:00 00:00:[address] [place] 3.430.2.7 Hospi ta .3.188375 l .8 2022-02-06 2022-02-06 Office Ashley, 1.2.840.1 [id number] [facility] 14:00:00 14:20:00 Visit Shilpa 49603.1.[address] [place] 3.430.2.7 Hospi ta .3.320729 l .8 2022-02-06 2022-02-06 [facility] [id number] [place] 00:00:00 00:00:[address] 2022-02-06 2022-02-06 Travel 1.2.840.1 [id number] [id number] [facility] 00:00:00 00:00:[address] 3.430.2.7 0.2.7.3.698 Ho spita .3.121714 084.8 l .8 2021-11-20 2021-11-20 [facility] Ashley, 1.2.840.1 [id number] [facility] 00:00:00 00:00:00 Only Shilpa 98222.1.[address] [place] 3.430.2.7 Hospi ta .3.929052 l .8 2021-11-20 2021-11-20 Telephone Ashley, 1.2.840.1 [id number] [facility] 00:00:00 00:00:00 Shilpa 18636.1.1 [address] [facility] .8 2021-05-13 2021-05-13 [facility] [id number] [place] 00:00:00 00:00:00 SHILPA [address] 2020-11-20 2020-11-20 Outpatient [facility] [id number] [place] 00:00:00 00:00:00 SHILPA [address] 2020-08-13 2020-08-13 Outpatient [facility] [id number] [place] 00:00:00 00:00:[address] SHILPA [address] Results This patient has no known results.
[2022-09-23] MEDS ORDERED: NA CHLORIDE 0.9% 1,000 ML ONE (16:20)
[2022-09-23] MEDS ORDERED: ONDANSETRON 4 MG/2 ML VIAL ONE (16:20)
[2022-09-23] MEDS ORDERED: KETOROLAC 30 MG/ML INJ ONE (16:20)
[2022-09-23] MEDS ORDERED: MECLIZINE HCL 12.5 MG TAB ONE (16:20)
--- NOTE | 2022-09-23 16:24 | RAD REPORT ---
EXAM DESCRIPTION: CT - Head Brain Wo Cont - 09/23/2022 4:03 pm CLINICAL HISTORY: DIZZINESS COMPARISON: <Comparisons> TECHNIQUE: All CT scans are performed using dose optimization technique as appropriate and may inclu de automated exposure control or mA/KV adjustment according to patient size. FINDINGS: No intracranial hemorrhage, hydrocephalus or extra-axial fluid collection.No areas of brai n edema or evidence of midline shift. The paranasal sinuses and mastoids are clear. The calvarium is intact. IMPRESSION: No acute intracranial abnormality.
[2022-09-23 16:39] LABS: Absolute Lymphocytes (CBC) 1.6 K/uL (0.7-4.9); Hematocrit 36.6 % (36.0-45.0); Lymphocytes % 23.6 % (15.3-44.8); MCV 93.9 fL (80-100); MPV 7.3 fL (7.6-11.3)
[2022-09-23 16:46] LABS: Potassium 3.5 mEq/L (3.5-5.1)
--- NOTE | 2022-09-23 17:00 | EDPHYS ---
Physician Documentation [facility] Name: Cassidy Salcedo Age: 37 yrs Sex: Female : 1985 Arrival Date: 09/23/2022 Time: 15:27 Bed 9 Private MD: ED Physician Marcel Dove HPI: 09/23 15:58 This 37 yrs old Female presents to ER via Unassigned with complaints of Dizziness, rn Nausea, General Weakness. 15:58 The patient presents with sense of spinning, vertigo. Onset: The symptoms/episode rn began/occurred this morning. Modifying factors: The symptoms are alleviated by nothing, the symptoms are aggravated by movement of head, standing up, changing position. Associated signs and symptoms: Pertinent negatives: blurred vision, chest pain, diaphoresis, focal weakness, head injury, headache, seizure, shortness of breath, syncope. Severity of symptoms: At their worst the symptoms were moderate in the emergency department the symptoms are unchanged. The patient has experienced a previous episode. The patient has not recently seen a physician. Pt reports dizziness and vertigo that began this morning, has had complicated migraines with hemiplegia before as well as other auras, has also had vertigo before. Took her migraine medication and didn't help. Denies headache. No fever. + nausea and vomiting. Was but had miscarriage with D\T\C last month without complications. . 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 - Social history:: Smoking status: Patient denies any tobacco usage or history of. - Family history:: not pertinent. - Hospitalizations: : No recent hospitalization is reported. ROS: 15:58 Constitutional: Negative for fever, chills, and weight loss, Cardiovascular: Negative rn for chest pain, palpitations, and edema, Respiratory: Negative for shortness of breath, cough, wheezing, and pleuritic chest pain, Abdomen/GI: + nausea and vomiting, neg for abd pain/diarrhea Back: Negative for injury and pain, MS/Extremity: Negative for injury and deformity, Skin: Negative for injury, rash, and discoloration, Neuro: Negative for headache, numbness, tingling, and seizure. Exam: 15:58 Constitutional: This is a well developed, well nourished patient who is awake, alert, rn holding emesis basin Head/Face: Normocephalic, atraumatic. Eyes: Pupils equal round and reactive to light, extra-ocular motions intact. Neck: No Meningismus. Cardiovascular: Regular rate and rhythm. No pulse deficits. Respiratory: No increased work of breathing, no retractions or nasal flaring. Abdomen/GI: Soft, non-tender, with normal bowel sounds. No distension or tympany. No guarding or rebound. No evidence of tenderness throughout. Skin: Warm, dry MS/ Extremity: Pulses equal, no cyanosis. Neurovascular intact. Full, normal range of motion. Equal circumference. Neuro: Awake and alert, GCS 15, oriented to person, place, time, and situation. Cranial nerves II-XII grossly intact. Motor strength 5/5 in all extremities. Sensory grossly intact. Cerebellar exam normal. Vital Signs: 15:58 BP 165 / 93; Pulse 71; Resp 17; Pulse Ox 100% ; Weight 83.91 kg; Height 6 ft. 5 in. ; ap3 15:58 Body Mass Index 21.94 (83.91 kg, 195.58 cm) ap3 MDM: 15:31 Patient medically screened. rn 16:32 ED course: CT head neg for acute findings, has had vertigo before, pt feels better. rn Recommend f/u with her neurologist. No focal findings on neuro exam. Anticipate dc home with return precautions. . 16:58 Differential diagnosis: generalized weakness, hyperventilation, hypovolemia, idiopathic rn dizziness, vertigo. Differential diagnosis: CVA, TIA. Data reviewed: vital signs, nurses notes, lab test result(s), radiologic studies, CT scan, and as a result, I will discharge patient. Counseling: I had a detailed discussion with the patient and/or guardian regarding: the historical points, exam findings, and any diagnostic results supporting the discharge/admit diagnosis, lab results, radiology results, the need for outpatient follow up, to return to the emergency department if symptoms worsen or persist or if there are any questions or concerns that arise at home. Response to treatment: the patient's symptoms have markedly improved after treatment, and as a result, I will discharge patient. Special discussion: I discussed with the patient/guardian in detail that at this point there is no indication for admission to the hospital. It is understood, however, that if the symptoms persist or worsen the patient needs to return immediately for re-evaluation. Based on the history and exam findings, there is no indication for further emergent testing or inpatient evaluation. I discussed with the patient/guardian the need to see the neurologist for further evaluation of the symptoms. ED course: Pt feels much better, minimal symptoms, smiling and sitting upright, ct head neg, no acute findings in blood. Will dc home with neuro f/u. . 09/23 15:51 Order name: CBC with Diff; Complete Time: 16:42 rn 09/23 15:51 Order name: Basic Metabolic Panel; Complete Time: 16:49 rn 09/23 15:51 Order name: CT Head Brain wo Cont; Complete Time: 16:31 rn 09/23 15:51 Order name: IV Start; Complete Time: 16:27 rn Administered Medications: 16:27 Drug: Meclizine PO 50 mg Route: PO; ap3 17:11 Follow up: Response: No adverse reaction ap3 16:27 Drug: NS 0.9% IV 1000 ml Route: IV; Rate: 1000 ml; Site: right antecubital; ap3 17:11 Follow up: IV Status: Completed infusion ap3 16:27 Drug: Ketorolac IVP 15 mg Route: IVP; Site: right antecubital; ap3 17:11 Follow up: Response: No adverse reaction; Pain is decreased ap3 16:27 Drug: Ondansetron IVP 4 mg Route: IVP; Site: right antecubital; ap3 17:11 Follow up: Response: No adverse reaction; Nausea is decreased ap3 Disposition Summary: 09/23/22 16:59 Discharge Ordered Location: Home rn Problem: new rn Symptoms: have improved rn Condition: Stable rn Diagnosis - Vertigo rn Followup: rn - With: Private Physician - When: As needed - Reason: Recheck today's complaints, Re-evaluation by your physician Discharge Instructions: - Discharge Summary Sheet rn - Vertigo rn Forms: - Medication Reconciliation Form rn - Thank You Letter rn - 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
--- NOTE | 2022-09-23 17:00 | ER ---
Nurse's Notes [facility] Name: Cassidy Salcedo Age: 37 yrs Sex: Female : 1985 Arrival Date: 09/23/2022 Time: 15:27 Bed 9 Private MD: Diagnosis: Vertigo Presentation: 09/23 15:58 Chief complaint: Patient states: she started having severe nausea and dizziness this ap3 morning at approx 1030 that has progressively gotten worse throughout the day. Coronavirus screen: At this time, the client does not indicate any symptoms associated with coronavirus-19. Ebola Screen: No symptoms or risks identified at this time. Initial Sepsis Screen: Does the patient meet any 2 criteria? No. Patient's initial sepsis screen is negative. Does the patient have a suspected source of infection? No. Patient's initial sepsis screen is negative. Risk Assessment: Do you want to hurt yourself or someone else? Patient reports no desire to harm self or others. Onset of symptoms was September 23, 2022. 15:58 Method Of Arrival: Wheelchair ap3 15:58 Acuity: MARI 3 ap3 Triage Assessment: 15:59 General: Appears uncomfortable, Behavior is cooperative, appropriate for age. Pain: ap3 Denies pain. Neuro: Level of Consciousness is awake, alert, obeys commands, Oriented to person, place, time, situation, Reports dizziness, weakness. Cardiovascular: Patient's skin is warm and dry. Respiratory: Airway is patent Respiratory effort is even, unlabored, Respiratory pattern is regular, symmetrical. GI: Reports nausea. 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 - Social history:: Smoking status: Patient denies any tobacco usage or history of. - Family history:: not pertinent. - Hospitalizations: : No recent hospitalization is reported. Screenin:[facility] ED Fall Risk Assessment (Adult) History of falling in the last 3 months, ap3 including since admission No falls in past 3 months (0 pts). Abuse screen: Denies threats or abuse. Nutritional screening: No deficits noted. Tuberculosis screening: No symptoms or risk factors identified. Vital Signs: 15:58 BP 165 / 93; Pulse 71; Resp 17; Pulse Ox 100% ; Weight 83.91 kg; Height 6 ft. 5 in. ; ap3 15:58 Body Mass Index 21.94 (83.91 kg, 195.58 cm) ap3 ED Course: 15:30 Patient arrived in ED. am2 15:31 Marcel Dove MD is Attending Physician. rn 15:58 Yanci Ballesteros RN is Primary Nurse. ap3 15:59 Triage completed. ap3 16:00 Arm band placed on right wrist. ap3 16:00 Patient has correct armband on for positive identification. Bed in low position. Call ap3 light in reach. Side rails up X 1. rn transport on. Pulse ox on. NIBP on. Door closed. Noise minimized. Warm blanket given. 16:03 CT Head Brain wo Cont In Process Unspecified. EDMS 16:27 Inserted saline lock: 20 gauge in right antecubital area, using aseptic technique. ap3 Blood collected. 17:11 No provider procedures requiring assistance completed. IV discontinued, intact, ap3 bleeding controlled, No redness/swelling at site. Pressure dressing applied. Administered Medications: 16:27 Drug: Meclizine PO 50 mg Route: PO; ap3 17:11 Follow up: Response: No adverse reaction ap3 16:27 Drug: NS 0.9% IV 1000 ml Route: IV; Rate: 1000 ml; Site: right antecubital; ap3 17:11 Follow up: IV Status: Completed infusion ap3 16:27 Drug: Ketorolac IVP 15 mg Route: IVP; Site: right antecubital; ap3 17:11 Follow up: Response: No adverse reaction; Pain is decreased ap3 16:27 Drug: Ondansetron IVP 4 mg Route: IVP; Site: right antecubital; ap3 17:11 Follow up: Response: No adverse reaction; Nausea is decreased ap3 Medication: 16:00 VIS not applicable for this client. ap3 Outcome: 16:59 Discharge ordered by . rn 17:11 Discharged to home via wheelchair, with family. ap3 17:11 Condition: good 17:11 Discharge instructions given to patient, family, Instructed on discharge instructions, follow up and referral plans. medication usage, Demonstrated understanding of instructions, follow-up care, medications, Prescriptions given X 2. 17:11 Patient left the ED. ap3 Signatures: Dispatcher [employer] EDMS Marcel Dove MD MD rn Moreno, Amanda am2 Yanci Ballesteros RN RN ap3
== END 2022-09-23 17:11 | disposition home or self-care (01) ==
LOC: ER 15:27
DX: R42 Dizziness and giddiness (principal); R11.2 Nausea with vomiting, unspecified; Z88.0 Allergy status to penicillin; Z88.2 Allergy status to sulfonamides; Z88.8 Allergy status to other drugs, medicaments and biological substances
CPT/HCPCS: 96361; 85025; 80048; 36415; 70450; 96375; 96374; 99285; J8597; J2405; J7030